=== PATIENT | female | born 1955 | race Caucasian/White ===

== ENCOUNTER 2019-07-10 08:00 | Day surgery (SDC) | payer MEDICAID, SELFPAY | END 2019-07-11 13:26 | disposition home or self-care (01) | PROVIDERS: Family Provider Registered Nurse; PCP Registered Nurse; Visit Provider Orthopaedic Surgery | DX: M17.11 Unilateral primary osteoarthritis, right knee (principal); Z79.52 Long term (current) use of systemic steroids; Z87.891 Personal history of nicotine dependence; J45.909 Unspecified asthma, uncomplicated; I10 Essential (primary) hypertension; K21.9 Gastro-esophageal reflux disease without esophagitis | CPT/HCPCS: 27447; 12345; 73560; 96374; 96375; 97110; 97116; 97161; 97166; 97530; C1776; G0378; J0131; J0171; J0690; J1580; J1885; J2001; J2250; J2270; J2405; J2704; J2710; J2795; J3010; J3490; J7030 ==

== ENCOUNTER 2019-07-10 09:20 | Inpatient (IN) | payer MEDICAID, SELFPAY ==
[2019-06-27 10:08] VITALS: BMI 39.1
--- NOTE | 2019-06-27 10:29 | ANES.PREANE2 ---
Pre-Anesthetic Assessment Pre-Anesthetic Assessment: Height/Weight: Height 1.65 m Weight 106.594 kg Preop Diagnosis: Right knee end stage degenerative joint disease Proposed Procedure: Operation Date: 07/10/19 07:00 Proposed Procedures p Total Knee Arthroplasty 28037 M17.11(Right) - Ascencion Johnson MD Social: Packs per day: 1/2 Pack years: 4 Comment: quit 30 Exam: Pre-Anes Outpt Exam: alert, oriented x 3, clear to auscultation bilaterally and regular rate & rhythm Airway: Submandibular: WNL Cervical ROM: Other MP: 2 Dentition: False Pulmonary: Pulmonary: Asthma CV/HEM: CV/HEM: HTN Comments: rx'd 10y stress test '10 negative GI: GI: GERD Comments: controlled with omeprazole Anesthetic Plan: ASA status: 2 Anesthesia: General and Regional (specify below) PFSH Anesthesia PFSH: Family History (Updated 06/27/19 @ 10:02 by Gabriella Ortiz) Other Diabetes Social History Smoking and tobacco status: never smoked Female Reproductive History: Date of last menstrual period: 06/18/88 Data Anesthesia Cardiac Studies: No Data to Display
[2019-07-10] VITALS (23 sets, daily range): BP systolic 120–168; BP diastolic 58–88; PULSE 43–60; RESP 12–20; TEMP 36.4–37; O2SAT 86–100
--- NOTE | 2019-07-10 06:26 | P.ANESUD_ITS ---
Pre-Anesthetic Update Pre-Anesthetic Assessment: Date of Surgery/Procedure: 07/10/19 Preop Oly gnosis: Osteoarthritis right knee Proposed Procedure: Operation Date: 07/10/19 07:00 Proposed Procedures p Total Knee Arthroplasty 84633 M17.11(Right) - Ascencion Johnson MD Last Intake: Intake Last Liquid Date 07/09/19 Last Solid Date 07/09/19 Vitals: Temperature 98 F 07/10/19 06:20 Temperature Source Temporal Artery S can 07/10/19 06:20 Pulse Rate 60 07/10/19 06:20 Pulse Rhythm 07/10/19 06:11 Pulse Strength 3+ Normal 07/10/19 06:11 Respiratory Rate 18 07/10/19 06:20 Blood Pressure 133/78 07/10/19 06:20 Blood Pressure Bonnie n 96 07/10/19 06:20 Pulse Oximetry 96 07/10/19 06:20 Oxygen Delivery Me thod 07/10/19 06:20 Cardiac Studies: No Data to Display
[2019-07-10] MEDS: sodium chloride 0.9% 1,000 ML 30 ML IV (06:30)
[2019-07-10] MEDS: midazolam 1 mg/mL INJ 5 ML 5 MG IVP (06:53)
[2019-07-10] MEDS: fentaNYL 50 mcg/mL INJ 2mL 100 MCG IVP (06:54)
--- NOTE | 2019-07-10 07:02 | W.PM.OPSUD ---
Surgery/Procedure H&P Update DATE OF PROCEDURE: July 10, 2019 DATE H&P PERFORMED: 07/04/19 H&P UPDATE INFORMATION: I have reviewed H&P completed within last 30 days and No changes to prior documentation PREOP DIAGNOSIS: Osteoarthritis right knee PRIMARY INDICATION FOR PROCEDURE: Pain right knee due to osteoarthritis. Failed conservative care PLANNED PROCEDURE: Operation Date: 07/10/19 07:00 Proposed Procedures p Total Knee Arthroplasty 03589 M17.11(Right) - Ascencion Johnson MD
[2019-07-10] MEDS: tranexamic acid 1,000 mg/10mL SDV 1000 MG IRRIGATION (08:23)
[2019-07-10] MEDS: ketorolac 30 mg/mL INJ IM (08:27)
[2019-07-10] MEDS: EPINEPHrine 1 mg/mL INJ XX (08:27)
--- NOTE | 2019-07-10 09:08 | PM.OP ---
Operative Report Date of procedure: July 10, 2019 Pre-op Diagnosis: Osteoarthritis right knee Post-op diagnosis: same Post-op Findings: Same Procedure Done: Right total knee arthroplasty Pathology: none sent Surgeon: Ascencion Johnson Anesthesia: General and Nerve Block (Interscalene) Estimated blood loss (mL): 200 Tourniquet time (min): 50 Complications: None Findings: The patient had tricompartmental degenerative joint disease with exposed subchondral bone throughout. Her preoperative motion was 30 to 70 degrees. Condition: stable Disposition: PACU Procedure: The patient was taken to the operating room. Patient was given 1 g of tranexamic acid . The above anesthesia provided by the anesthesia service. A timeout was performed. The patient was prepped and draped in the usual fashion with the lower extremity exposed. A anterior incision was made, midline, from a point proximal to the patella to the distal tibial tubercle. Dissection was accomplished through the subcutaneous fat to the extensor mechanism. The knee was entered through a medial parapatellar approach the patella could be everted laterally and the knee flexed. The patellar fat pad was resected to provide better visibility. Retractors were placed medially and laterally adjacent to the tibial plateau. The femoral canal was drilled in line with the longitudinal axis of the femur. Intramedullary femoral guide for used to make a distal femoral cut in 5 degrees of valgus, resecting 8 mm from the more prominent condyle. Next the extra medullary tibial guide was placed in alignment with the longitudinal axis of the tibia. The cutting guides were set to remove just over 9 mm from the high tibial plateau. The proximal tibia was then cut. The femoral measuring guide was then placed over the distal femur. Rotation was verified checking the relationship of the guide to the condyle and the trochlear groove. The femur was measured and cut for the desired femoral component. The desired tibial baseplate was then chosen. A trial reduction with the femur tibial baseplate and polyethylene was done, assuring that the knee was stable throughout full motion. Ligament balancing release of the deep medial collateral ligament and removal of medial osteophyte.The tibia was prepared for the tibial baseplate. Patellar thickness was then measured. The patella was cut removing articular cartilage and prepared for appropriate size patellar button. All surfaces were cleaned with pulsatile lavage. The femur tibia and patella were then press-fit into place. The posterior capsule and collateral ligaments were then injected with a solution of 100 mL of 0.2% ropivacaine, 1 mL of a 1:1000 epinephrine solution, and 30 mg of Toradol. Final polyethylene component was then snapped into place into the tibia. 2 grams of tranexamic acid were applied to the wound. The tourniquet was deflated. The tranxanemic acid was left contact with the knee for 5 minutes before the knee was irrigated with saline. The extensor retinaculum was closed with 1 Ethibond. The subcutaneous tissues were closed with 2-0 Vicryl and the skin was closed with skin farzana. A compressive dressing was applied. The patient was taken to recovery room in stable condition. NeoDiagnostix total knee arthroplasty components were used includin) Size 4 triathalon cruciate retaining femoral component 2) Size 4 Tritanium tibial component 3) 32 mm /10 mm thickness Tritanium asymetric patella 4) Size 4/9 mm thickness CS tibial bearing insert
[2019-07-10] MEDS: fentaNYL 50 mcg/mL INJ 2mL IVP ×2 (09:22→09:27)
--- NOTE | 2019-07-10 09:25 | ANES.PROC ---
Anesthesia Procedures Procedure/Date: 07/10/19 Right adductor canal block Procedure Narrative: R&B's of right adductor canal block for postop pain relief following right TKA. Verbal and written consent obtained. Versed 2+1+.5mg, Fentanyl 50ug, US utilized to identify right adductor canal space, CHRIS. 40 cc of Ropvicaine 0.5% + Lido 2% with epi in 3:1 mixture in 5cc incremental doses. Nerve Block ^: Nerve Block 1: Main Anesthesia: general anesthesia Time Out Performed: Yes Consent: requested by attending/covering physician, from patient, risks and benefits reviewed and patient agrees to proceed Nerve block location: adductor canal Anesthesia monitors applied: pulse oximetry and oxygen Nerve block position: supine Anesthetic Used: lidocaine 2%, ropivicaine 0.5% and with epi Amount of anesthesia used (mL): 40 Ultrasound used to: visualize and ID femerol nerve Nerve Stimulator Used?: No Interscalene/Femoral BLK: 2 stimuplex 22 g needle used for position and inplane approach Injection: neg aspiration of heme and paresthesia +/- Patient Tolerated Procedure: well and no complications Complications: none
--- NOTE | 2019-07-10 09:27 | SUR.PHASEI ---
0927 PT HAS SENSATION/MOVEMENT TO R. FOOT, PEDAL PULSE PALPATED, CAP REFILL <3 SEC, FIRST ICE APPLIED
--- NOTE | 2019-07-10 09:28 | XRR_ITS ---
PROCEDURE INFORMATION: Exam: XR Right Knee Exam date and time: 07/10/2019 9:37 AM Age: 63 years old Clinical indication: Condition or disease; Joint replacement status; Knee; Other complication; Right; Prior surgery; Surgery date: Post-operative (0-2 days); Additional info: Right tka TECHNIQUE: Imaging protocol: XR Right knee. Views: 1 or 2 views. COMPARISON: CR Knee 3 views, RIGHT* [id number] 09/28/2018 5:11 PM FINDINGS: Bones/joints: Patient is status post knee arthroplasty with near anatomical alignment of the prosthesis. No paralleling lucencies about the femoral or tibial component to suggest loosening. No acute fracture or dislocation Soft tissues: Operative changes in the soft tissues about the knee Other findings: Spacer. XR/XR knee RT 1-2V 02427 IMPRESSION: 1. Status post total knee arthroplasty. 2. No paralleling lucencies about the femoral or tibial component to suggest loosening.
[2019-07-10] MEDS: CELEcoxib 200 mg Capsule PO ×2 (10:19→22:33)
[2019-07-10] MEDS: sodium chloride 0.9% 1,000 ML 100 ML IV ×2 (10:20→18:33)
[2019-07-10] MEDS: ondansetron 2 mg/ML SDV 2 mL 4 MG IVP (10:26)
--- NOTE | 2019-07-10 11:01 | PC.NURSE ---
I reported the low 02 level to the nurse
[2019-07-10] MEDS: morphine 4 mg/mL SDV 1 mL 2 MG IVP (14:17)
[2019-07-10] MEDS: chlorhexidine gluconate 0.12% Btl 473 mL 30 ML MUCOUS MEM ×2 (14:20→22:33)
[2019-07-10] MEDS: calcium carbonate 500 mg Chew Tablet 1000 MG PO (17:07)
[2019-07-10] MEDS: iron polysaccharide complex 150 mg Capsule PO (17:07)
[2019-07-10] MEDS: sennosides-docusate Tablet 2 TAB PO (17:07)
[2019-07-10] MEDS: mupirocin oint 22 gm 1 APPLIC NASAL (17:07)
[2019-07-10] MEDS: montelukast sodium 10 mg Tablet PO (22:33)
[2019-07-10] MEDS: oxyCODONE 5 mg IR Tab/Cap PO (22:37)
[2019-07-11] VITALS (13 sets, daily range): BP systolic 120–155; BP diastolic 61–76; PULSE 59–77; RESP 17–20; TEMP 36.8–37.2; O2SAT 91–95
[2019-07-11] MEDS: sodium chloride 0.9% 1,000 ML 100 ML IV (05:33)
[2019-07-11] MEDS: oxyCODONE 5 mg IR Tab/Cap PO ×4 (07:39→21:02)
[2019-07-11] MEDS: iron polysaccharide complex 150 mg Capsule PO ×2 (07:39→17:22)
[2019-07-11] MEDS: bumetanide 1 mg Tablet 2 MG PO (09:12)
[2019-07-11] MEDS: calcium carbonate 500 mg Chew Tablet 1000 MG PO ×2 (09:12→17:22)
[2019-07-11] MEDS: CELEcoxib 200 mg Capsule PO ×2 (09:12→21:02)
[2019-07-11] MEDS: cholecalciferol (vitamin D3) 1,000 unit Tablet 1000 UNIT PO (09:12)
[2019-07-11] MEDS: pantoprazole DR 40 mg Tablet PO (09:13)
[2019-07-11] MEDS: metoprolol tartrate 25 mg Tablet PO ×2 (09:13→17:22)
[2019-07-11] MEDS: multivitamin therapeutic Tablet 1 TAB PO (09:13)
[2019-07-11] MEDS: sennosides-docusate Tablet 2 TAB PO ×2 (09:13→17:22)
[2019-07-11] MEDS: aspirin 325 mg EC Tablet PO (09:13)
[2019-07-11] MEDS: chlorhexidine gluconate 0.12% Btl 473 mL 30 ML MUCOUS MEM ×4 (09:16→21:04)
[2019-07-11] MEDS: mupirocin oint 22 gm 1 APPLIC NASAL (09:22)
--- NOTE | 2019-07-11 09:28 | PC.CHAP ---
Pastoral Care Encounter/Spiritual Assessment Type of Contact [] Declined building guard deputy sheriff visit [] Patient/Family/Request visit [] Outpatient visit [] Follow-up visit [] Physician referral [] Code/Alert [x] Routine visit [] Staff referral [] Actively dying [] Patient sleeping [] Family support [] [] Out of room [] Palliative care [] [] Receiving care in room [] Pre-surgical visit [] Trauma [] Long length of stay [] ICU visit [] Other: Relational/Emotional Strength [] Patient feels connected with others/family/visitors/staff [] Distress [] Loneliness/isolation [] Abandonment Spirituality of Patient [x] Person of Elissa [x] Attends Mosque of their Elissa [x] Believes in Prayer [] Reads Bible or Zoroastrian materials [] There are Spiritual issues to be addressed Automatic Bow Maker Machine Tender Interventions [x] Prayer [x] Active listening [x] Non-anxious presence [x] Spiritual/emotional support [] Crisis/trauma care [] Spiritual counseling [] Bereavement support [] Provided bereavement packet [] Provided Bible/devotional materials [] Provided toy/stuffed animal, coloring book to patient or family member [] Provided Communion [] Anointing/[place] [] Salvation [x] Completed spiritual assessment [] Other: Impact on Illness or Injury [] Angry [] Fearful [] Anxious [] Often cries [] Exhaustion [] Unable to work [] Unable to attend yazidism [] Unable to walk/stand [] Unable to read [] Unable to drive [] Unable to eat/drink [] Unable to sleep [] Unable to be with family [] Patient intubated [] Other: Summary 2 visitors Time spent with patient 10 min
--- NOTE | 2019-07-11 11:46 | ANE.PACU2 ---
 Inpatient post-anesthesia follow up: Airway intact: Yes Vital signs: Temperature 98.4 F Pulse Rate 59 Respiratory Rate 18 Blood Pressure 139/71 Pulse Oximetry 95 Oxygen Delivery Me thod Room Air Oxygen Flow Rate 3 Fraction of Inspir ed Oxygen Hydration adequate: Yes Nausea and vomiting: No Pain level: 3 Mental status: Baseline
--- NOTE | 2019-07-11 13:24 | P.PN_ITS ---
Subjective Subjective: Interval history: Patient's pain is better today. Good p.o. intake and passing urine. Up with therapy for short distances. Vitals/I&O/Wt Last Vital Signs Temp 98.4 F 07/11/19 10:33 Pulse 59 L 07/11/19 10:33 Resp 18 07/11/19 11:31 BP 139/71 07/11/19 10:33 Pulse Ox 95 07/11/19 10:33 07/10/19 07/11/19 07/11/19 22:59 06:59 14:59 Intake Total 1071.667 / 2931.667 1350 / 4281.667 720 / 720 Output Total 0 / 300 350 / 650 300 / 300 Balance 1071.667 / 2631.667 1000 / 3631.667 420 / 420 Weight last 48 hrs Weight 235 lb Weight 258 lb 6.4 oz Physical Exam Narrative: EXAM NARRATIVE: Right knee dressing clean and dry. No distal right neurovascular deficit Urinary Catheter Management^: Jones: Cath Placed During This Visit: yes Urethral Indwelling: No Urinary Catheter Date of Insertion: 07/10/19 Urinary Catheter Time of Insertion: 07:15 A&P Assessment and plan (1) Osteoarthritis of right knee: Status: Acute Code(s): M17.11 - Unilateral primary osteoarthritis, right knee (2) Status post right knee replacement: Continue to mobilize with therapy. Patient with slow her progress. She has significant motion loss preoperatively and I anticipate more difficulty regaining motion. I would like to see her 1 more good day of aggressive therapy anticipate discharge tomorrow. Status: Acute Code(s): Z96.651 - Presence of right artificial knee joint Attestations Medical Necessity Statement*: Patient requires 1 additional night hospitalization to improve mobility prior to discharge. Coding Level of Care Code Acute As[employer] for Faye Edwards Diagnoses Osteoarthritis of right knee M17.11 Status post right knee replacement Z96.651
[2019-07-11] MEDS: montelukast sodium 10 mg Tablet PO (21:03)
[2019-07-12] VITALS: BP 139/58; PULSE 64; RESP 17; TEMP 36.9; O2SAT 92
[2019-07-12 04:00] VITALS: BP 148/74; PULSE 69; RESP 18; TEMP 37; O2SAT 92
[2019-07-12 08:00] VITALS: BP 148/77; PULSE 65; RESP 20; TEMP 37.4; O2SAT 97
[2019-07-12] MEDS: bumetanide 1 mg Tablet 2 MG PO (08:36)
[2019-07-12] MEDS: calcium carbonate 500 mg Chew Tablet 1000 MG PO (08:36)
[2019-07-12] MEDS: metoprolol tartrate 25 mg Tablet PO (08:37)
[2019-07-12] MEDS: aspirin 325 mg EC Tablet PO (08:37)
[2019-07-12] MEDS: multivitamin therapeutic Tablet 1 TAB PO (08:37)
[2019-07-12] MEDS: cholecalciferol (vitamin D3) 1,000 unit Tablet 1000 UNIT PO (08:37)
[2019-07-12] MEDS: iron polysaccharide complex 150 mg Capsule PO (08:38)
[2019-07-12] MEDS: oxyCODONE 5 mg IR Tab/Cap PO ×2 (08:38→12:59)
[2019-07-12] MEDS: sennosides-docusate Tablet 2 TAB PO (08:38)
[2019-07-12] MEDS: pantoprazole DR 40 mg Tablet PO (08:38)
[2019-07-12] MEDS: chlorhexidine gluconate 0.12% Btl 473 mL 30 ML MUCOUS MEM ×2 (08:42→13:00)
[2019-07-12] MEDS: CELEcoxib 200 mg Capsule PO (10:41)
[2019-07-12 10:46] VITALS: BP 128/76; PULSE 66; RESP 18; TEMP 36.9; O2SAT 97
--- NOTE | 2019-07-12 13:45 | PM.DCS ---
Discharge Providers Date of Admission: 07/11/19 13:26 Date of Discharge: July 12, 2019 Attending Provider at Admission: Ascencion Johnson MD Attending Provider at Discharge: Ascencion Johnson MD Primary Care Provider: Helena Godfrey Diagnoses at Discharge Discharge Diagnosis (1) Osteoarthritis of right knee: Status: Acute (2) Status post right knee replacement: Status: Acute Reason for Visit Reason for Visit: Reason For Visit: Right Total Knee Arthroplasty Hospital Course Hospital Course: The patient underwent elective right total knee arthroplasty on 07/10/2019 and did exceptionally well. She had slow her progress due to her size but by 07/12/2019 she was fully ambulatory and ready for discharge. She remained hemodynamically stable throughout her hospitalization. She was begun on aspirin and sequential compression dressings for DVT prophylaxis. She was thought stable for discharge by 07/12/2019 Physical Exam Narrative: EXAM NARRATIVE: Her right knee on 07/12/2019 revealed minimal swelling. Her incision was clean and free of drainage. She had no distal right neurovascular deficits. Urinary Catheter Management^: Jones: Cath Placed During This Visit: yes Urethral Indwelling: No Urinary Catheter Date of Insertion: 07/10/19 Urinary Catheter Time of Insertion: 07:15 Discharge Data Data Completed and Pending: Completed Studies During Hospitalization Category Date Time Status XR knee RT 1-2V 7 3560 Routine Exams 07/10/19 09:28 Completed Pending at discharge Category Date Time Status Hemoglobin AM LAB S Lab 07/13/19 04:00 Ordered Labs from last 24 hours 07/12/19 04:57 Hgb 11.0 L Vitals: Last Vital Signs Temp 98.4 F 07/12/19 10:46 Pulse 66 07/12/19 10:46 Resp 18 07/12/19 10:46 BP 128/76 07/12/19 10:46 Pulse Ox 97 07/12/19 10:46 Discharge Plan Discharge Patient Disposition: Home Health Service Condition: Stable Prescriptions: New celecoxib 200 mg Capsule 200 mg PO Q12H Qty: 30 RF: 0 aspirin 325 mg Tablet,Delayed Release (Dr/Ec) 325 mg PO DAILY Qty: 30 RF: 0 oxycodone 5 mg Tablet 5 mg PO Q4H PRN (Reason: Moderate Pain) Qty: 30 RF: 0 Continued metoprolol tartrate 25 mg tablet 25 mg PO BID RF: 0 potassium chloride 10 mEq capsule, extended release 10 meq PO DAILY RF: 0 omeprazole 20 mg capsule,delayed release(DR/EC) 20 mg PO DAILY RF: 0 montelukast 10 mg tablet 10 mg PO ONCE RF: 0 albuterol 90 mcg/actuation aerosol 90 mcg INHALATION Q4-5H PRN (Reason: SOB) RF: 0 mupirocin 2 % ointment 1 applic TOPICAL BID Qty: 30 RF: 0 bumetanide 2 mg Tablet 2 mg PO DAILY RF: 0 Discharge Orders: Discharge Order (Routine); Ordered 07/12/19 Ordered By: Ascencion Johnson Other Ambulatory Orders: DME: Walker (Order) Location: None Selected Ordered By: Ascencion Johnson Physical Therapy Eval and Treat Outpatient (Order) Timeframe: [id number] Facility: [facility] - Location: Physical Therapy Ordered By: Ascencion Johnson Referrals: Ascencion Johnson MD [Physician] - 07/25/19 11:30 am Discharge Diet: Advance as tolerated Discharge Activity: As per PT/OT instructions Patient Instructions: Oxycodone/Acetaminophen (By mouth), Aspirin (By mouth), Celecoxib (By mouth), Total Knee Replacement (DC) Activity Restrictions/Additional Instructions: May shower once incisions completely free of drainage. Replaced dressings as needed for drainage.. Take Celebrex twice a day for the next 15 days, discontinue other anti-inflammatories Take oxycodone for breakthrough pain. Exercises per physical therapy. Ice and elevate knees as needed for pain and swelling.. Discharge Attestations Time Spent in Discharge Care*: other Quality Metrics Clinical Quality Measures During this hospital stay, did patient experience: None Coding Level of Care Code Acute Category Specialist for arianna Fwcassidy Diagnoses Osteoarthritis of right knee M17.11 Status post right knee replacement Z96.651
[2019-07-12 13:59] VITALS: BP 128/76; PULSE 66; RESP 18; TEMP 36.9; O2SAT 97
== END 2019-07-12 14:00 | disposition home or self-care (01) | DRG 470 ==
LOC: MEDSURG 09:20
PROVIDERS: Admitting Provider Orthopaedic Surgery; Family Provider Registered Nurse; PCP Registered Nurse; Visit Provider Orthopaedic Surgery
PROC: 0SRC0JA Replacement of Right Knee Joint with Synthetic Substitute, Uncemented, Open Approach (ICD-10-PCS; CPT 27447; principal; 2019-07-10 07:00)
DX: M17.11 Unilateral primary osteoarthritis, right knee (principal); Z79.52 Long term (current) use of systemic steroids
CPT/HCPCS: 12345; 36415; 73560; 85018; 96374; 96375; 97110; 97116; 97161; 97166; 97530; C1776; G0378; J0131; J0171; J0690; J1100; J1580; J1885; J2001; J2250; J2270; J2405; J2704; J2710; J2795; J3010; J3490; J7030

== ENCOUNTER 2019-07-14 08:31 | Outpatient (RCR) | payer SELFPAY | END 2019-07-15 23:59 | disposition home or self-care (01) | LOC: SPT 08:31 | PROVIDERS: Family Provider Registered Nurse; PCP Registered Nurse; Referring Provider Orthopaedic Surgery; Visit Provider Orthopaedic Surgery | DX: Z47.1 Aftercare following joint replacement surgery (principal); Z96.651 Presence of right artificial knee joint | CPT/HCPCS: 97161 ==

== ENCOUNTER 2019-07-16 06:00 | Outpatient (RCR) | payer SELFPAY | END 2019-08-15 23:59 | disposition home or self-care (01) | LOC: SPT 06:00 | PROVIDERS: Family Provider Registered Nurse; PCP Registered Nurse; Referring Provider Orthopaedic Surgery; Visit Provider Orthopaedic Surgery | DX: Z47.1 Aftercare following joint replacement surgery (principal); Z96.651 Presence of right artificial knee joint | CPT/HCPCS: 97110 ==

== ENCOUNTER 2019-08-16 06:00 | Outpatient (RCR) | payer MEDICAID, SELFPAY | END 2019-09-14 23:59 | disposition home or self-care (01) | LOC: SPT 06:00 | PROVIDERS: Family Provider Registered Nurse; PCP Registered Nurse; Referring Provider Orthopaedic Surgery; Visit Provider Orthopaedic Surgery | DX: Z47.1 Aftercare following joint replacement surgery (principal); Z96.651 Presence of right artificial knee joint | CPT/HCPCS: 97110 ==

== ENCOUNTER 2019-09-15 06:00 | Outpatient (RCR) | payer SELFPAY | END 2019-10-15 23:59 | disposition home or self-care (01) | LOC: SPT 06:00 | PROVIDERS: PCP Registered Nurse; Referring Provider Orthopaedic Surgery; Visit Provider Orthopaedic Surgery | DX: Z47.1 Aftercare following joint replacement surgery (principal); Z96.651 Presence of right artificial knee joint; M25.661 Stiffness of right knee, not elsewhere classified | CPT/HCPCS: 97110 ==

== ENCOUNTER 2020-03-26 14:19 | Outpatient (CLI) | payer MEDICAID, SELFPAY ==
--- NOTE | 2020-03-26 14:25 | MM_ITS ---
WS: [id number] BILATERAL DIGITAL SCREENING MAMMOGRAPHY WITH CAD CLINICAL INFORMATION: SCREENING HISTORY: Screening mammogram. No current complaints. COMPARISON: TECHNIQUE: Bilateral CC and MLO views. FINDINGS: Scattered fibroglandular densities bilaterally. No suspicious focal mass, asymmetry, calcifications, or architectural distortion. No evidence of malignancy. A few intramammary lymph nodes. Punctate calc ifications. MM/[id number] IMPRESSION: BI-RADS: 2-Benign FOLLOW UP: 1 Year Follow-up Recommend return to annual screening mammography.
== END 2020-03-26 14:20 | disposition home or self-care (01) ==
LOC: RADSHAW 14:23
PROVIDERS: PCP Registered Nurse; Visit Provider Registered Nurse
DX: Z12.31 Encounter for screening mammogram for malignant neoplasm of breast (principal)
CPT/HCPCS: 77067

== ENCOUNTER 2022-01-09 11:01 | Outpatient (CLI) | payer MEDICARE, MEDICAID, SELFPAY ==
--- NOTE | 2022-01-09 11:10 | MM_ITS ---
WS: [id number] Bilateral screening 3D tomosynthesis digital mammogram, 01/09/2022 Clinical Data: SCREENING Comparison: 03/26/2020, 10/21/2017, 11/05/2005. Findings: The breast parenchymal pattern shows fibroglandular tissue. No spiculated masses or clustered calcifi cations are seen. There are no secondary signs of carcinoma. There is a mole marker on the right [address] MM/[place] [id number] Impression: 1. Negative bilateral mammogram unchanged. 2. Recommend annual screening mammograms. BIRADS: 1-Negative FOLLOW UP: 1 Year Follow-up The CAD weight checker was used.
== END 2022-01-09 11:02 | disposition home or self-care (01) ==
LOC: RAD 11:05
PROVIDERS: PCP Registered Nurse; Visit Provider Registered Nurse
DX: Z12.31 Encounter for screening mammogram for malignant neoplasm of breast (principal)
CPT/HCPCS: 77063; 77067

== ENCOUNTER 2022-03-30 13:09 | Observation (INO) | payer MEDICARE, MEDICAID, SELFPAY ==
[2022-03-30] VITALS (11 sets, daily range): BP systolic 104–133; BP diastolic 53–100; PULSE 74–111; RESP 18–22; TEMP 36.4–37.1; O2SAT 92–95; BMI 38.2
--- NOTE | 2022-03-30 13:49 | XR_ITS ---
WS: [id number] Exam: XR chest 1V portable [id number] Date/Time of Exam: 03/30/2022 1:49 PM Reason For Exam: sob Comparison 05/25/2003. The lungs are clear and fully expanded. Normal cardiomediastinal silhouette for technique. No pleural effusions. Regional bony elements are intact. XR/XR chest 1V portable [id number] IMPRESSION: 1. No acute cardiopulmonary finding.
--- NOTE | 2022-03-30 13:49 | ECG_ITS ---
[facility] Test Date: 2022-03-30 Pat Name: Rehana Go Department: Room: Gender: Female Six Pack Packer: : [id number] Requested By: Reynaldo Rosales Order Number: [id number] Debbie MD: Otilio Mccullough Measurements Intervals [place] Rate: 98 P: 0 NC: 0 QRS: -3 QRSD: 153 T: 126 QT: 396 QTc: 507 Interpretive Statements SINUS RHYTHM WITH PAROXYSMAL ATRIAL FIBRILLATION LEFT BUNDLE BRANCH BLOCK [120+ ms QRS DURATION, 80+ ms Q/S IN V1/V2, 85+ ms R IN I/aVL/V5/V6] No previous ECG available for comparison Electronically Signed On 03-31-2022 18:14:59 OPERATIONS INTERN by Otilio Mccullough [email or web address]
--- NOTE | 2022-03-30 14:00 | W.ED.SOB ---
HPI - SOB/Dyspnea General: Chief Complaint: Shortness of Breath/Dyspnea Stated Complaint: SOB Time Seen by Provider: 03/30/22 13:59 History of Present Illness: HPI Narrative: Ms. Go is a 66-year-old lady with significant past medical history of asthma presenting to the emergency department due to shortness of breath. Noticed worsening of symptoms approximately 2 days ago which has gradually worsened. Endorses worse symptoms while lying flat and with exertion with marked decrease in exertional tolerance. Some cough. 1 day of perhaps chills. Intensity symptoms moderate but becomes severe with exertion. Endorses similar timeframe for left lateral neck swelling associated with what she thinks may have been a spider bite. Some redness and discomfort though overall swelling is improved. No other specific changes in health, exacerbating, or alleviating factors identified. Onset (ago): day(s) Timing: constant and progressively worsening Severity: moderate Exacerbating factors: lying flat and exertion Relieving factors: nothing Known history of: asthma Associated symptoms: Reports no associated symptoms Review of Systems General: Reports: 10 or more systems reviewed and unremarkable except in HPI and below PFSH ED PFSH: Medical History Asthma Hypertension Ovarian cyst Surgical History H/O section H/O: hysterectomy Hx of cholecystectomy Status post right knee replacement Family History Other Diabetes Social History Smoking and tobacco status: never smoked Female Reproductive History: Date of last menstrual period: 06/18/88 Physical Exam Const: COMMON NORMALS: alert GENERAL APPEARANCE: cooperative and well developed HENMT: COMMON NORMALS: normocephalic and atraumatic HEAD & SCALP: normocephalic and atraumatic Eye: COMMON NORMALS: conjunctivae normal CONJUNCTIVA: Yes conjunctivae normal SCLERA: sclerae normal Neck/C-Spine: COMMON NORMALS: supple GENERAL: Yes trachea midline Resp: EFFORT & INSPECTION: Yes able to speak in complete sentences and Yes tachypneic AUSCULTATION: diminished lung sounds Cardio: COMMON NORMALS: regular rhythm RATE: tachycardic RHYTHM: regular rhythm GI: COMMON NORMALS: Soft to palpation PALPATION: Yes Soft to palpation and No Tenderness to palpation present (GI) Extremity: GENERAL: Yes normal exam except as noted and No edema Neuro: COMMON NORMALS: moves all extremities SENSORIUM/ORIENTATION: Yes alert and No Orientation impaired Psych: COMMON NORMALS: mental status grossly normal and Normal thought process present THOUGHT PROCESS: Normal thought process present Skin: NARRATIVE SKIN EXAM: Left lateral neck with area of swelling and greater area of erythema, appears to have central insect bite Course Vital Signs: Vital signs: Vital Signs Temperature 98.6 F 03/31/22 12:17 Pulse Rate 74 03/31/22 12:17 Respiratory Rate 14 03/31/22 12:17 Blood Pressure 154/78 03/31/22 12:17 Pulse Oximetry 98 03/31/22 12:17 Oxygen Delivery Me thod 03/31/22 08:18 MDM - SOB/Dyspnea Medical Decision Making 66-year-old lady presenting with respiratory symptoms with some concerning features for heart failure. Exam as above. Twelve-lead EKG shows abnormal rhythm likely sinus rhythm with first-degree AV block and left bundle branch block. No STEMI. Unremarkable hematologic panel. Metabolic panel with mild hypokalemia and elevated creatinine. 2-hour delta troponin is negative. Negative COVID. Chest x-ray with no lobar consolidation or pneumothorax. Exact etiology of patient symptoms is unclear though there are certainly characteristics concerning for a cardiac etiology. Patient is not low risk by heart score. During ED course patient given RT treatment, potassium replenishment, aspirin. The results of ED evaluation were discussed with the patient including plan for admission due to requirement for level of care not available if discharged to prevent significant worsening/deterioration. Patient agreeable with plan. Discussed with hospitalist service who was agreeable to admit patient. Medical Records I reviewed the patient's medical records. Lab Data I reviewed the patient's lab results. 03/31/22 04:21 03/31/22 04:21 Labs/Radiology: Radiology Impressions Chest X-Ray 03/30/22 13:49 IMPRESSION: 1. No acute cardiopulmonary finding. Head/Neck Ultrasound 03/30/22 19:17 IMPRESSION: Dense area soft tissue thickening corresponds to the LEFT neck mass. Not an abscess at this time. Probably an inflammatory process from the recent spider bite. If this area does not improve over time consider follow-up imaging. CT with contrast may provide additional information if necessary. Laboratory Results WBC 8.8 10^3/uL (4.0-10.0) 03/30/22 14:47 RBC 5.14 10^6/uL (4.1-5.3) 03/30/22 14:47 Hgb 14.6 g/dL (11.5-15.3) 03/30/22 14:47 Hct 44.2 % (37.0-47.0) 03/30/22 14:47 MCV 86.0 fl (81-99) 03/30/22 14:47 MCH 28.4 pg (28.0-34.0) 03/30/22 14:47 MCHC 33.0 g/dL (30.0-36.0) 03/30/22 14:47 RDW 13.1 % (12.1-15.1) 03/30/22 14:47 Plt Count 225 10^3/cmm (130-400) 03/30/22 14:47 MPV 9.4 fL (7.4-10.4) 03/30/22 14:47 Neut % (Auto) 57.6 % 03/30/22 14:47 Lymph % (Auto) 21.6 % 03/30/22 14:47 [place] % (Auto) 7.4 % 03/30/22 14:47 Eos % (Auto) 12.4 % 03/30/22 14:47 Baso % (Auto) 0.5 % 03/30/22 14:47 Neut # (Auto) 5.09 10^3/uL (1.8-7.7) 03/30/22 14:47 Lymph # (Auto) 1.9 10^3/uL (0.8-4.8) 03/30/22 14:47 [place] # (Auto) 0.7 10^3/uL (0.2-0.9) 03/30/22 14:47 Eos # (Auto) 1.1 10^3/uL (0.0-0.8) H 03/30/22 14:47 Baso # (Auto) 0.0 10^3/uL (0.0-0.1) 03/30/22 14:47 Nucleated RBC % (auto) 0 % 03/30/22 14:47 Nucleated RBCs # 0.0 /100WBC 03/30/22 14:47 D-Dimer 0.93 ug/mIFEU (0-0.59) H 03/30/22 14:47 Sodium 139 mmol/L (136-145) 03/30/22 14:47 Potassium 3.2 mmol/L (3.5-5.1) L 03/30/22 14:47 Chloride 96 mmol/L (98-107) L 03/30/22 14:47 Carbon Dioxide 29 mmol/L (22-29) 03/30/22 14:47 Anion Gap 17.2 (5-19) 03/30/22 14:47 BUN 21 mg/dL (8-23) 03/30/22 14:47 Creatinine 1.1 mg/dL (0.5-0.9) H 03/30/22 14:47 GFR Calculation 49.7 mL/min (90-130) L 03/30/22 14:47 Glucose 103 mg/dL (65-115) 03/30/22 14:47 Calculated Osmolality 291 mOsm/kg (285-295) 03/30/22 14:47 Calcium 9.8 mg/dL (8.5-10.5) 03/30/22 14:47 Total Bilirubin 0.7 mg/dL (0.15-1.2) 03/30/22 14:47 AST 21 U/L (0-32) 03/30/22 14:47 ALT 16 U/L (0-33) 03/30/22 14:47 Alkaline Phosphatase 226 U/L (35-105) H 03/30/22 14:47 Troponin T Baseline 10 ng/L (0-10) 03/30/22 14:47 Troponin T 120 Minute 9.47 ng/L (0-10) 03/30/22 16:27 Delta Troponin T -0.53 ABS# (0-10) L 03/30/22 16:27 C-Reactive Protein 35.3 mg/L (0.0-4.9) H 03/30/22 14:47 NT-Pro-B Natriuret Pep 739 pg/mL (0-125) H 03/30/22 14:47 Total Protein 8.0 g/dL (6.6-8.7) 03/30/22 14:47 Albumin 4.5 g/dL (3.5-5.2) 03/30/22 14:47 Globulin 3.5 g/dL (1.3-4.6) 03/30/22 14:47 Procalcitonin 0.10 ng/mL (0-0.5) 03/30/22 16:27 Coronavirus 229E (PCR) Not detected (NOT DETECT) 03/30/22 14:50 SARS-CoV-2 (PCR) Not detected (NOT DETECT) 03/30/22 14:50 Discharge Plan Discharge Patient Disposition: Placed in Observation Admit Provider: Rolando Recinos Clinical Impression: Atypical chest pain, Arrhythmia, Shortness of breath, Orthopnea Coding Level of Care Code ED Inspector [employer] for Chg Fwd Exam Comprehensive
[2022-03-30] MEDS: ipratropium-albuterol 3 mL Neb INHALATION (14:20)
[2022-03-30 14:56] LABS: Basophils % 0.5 %; Eosinophils # 1.1 10^3/uL (0.0-0.8); Eosinophils % 12.4 %; Hematocrit 44.2 % (37.0-47.0); Hemoglobin 14.6 g/dL (11.5-15.3); Lymphocytes # 1.9 10^3/uL (0.8-4.8); Lymphocytes % 21.6 %; Mean Corpuscular Hemoglobin 28.4 pg (28.0-34.0); Mean Platelet Volume 9.4 fL (7.4-10.4); Monocytes # 0.7 10^3/uL (0.2-0.9); Monocytes % 7.4 %; Neutrophils # 5.09 10^3/uL (1.8-7.7); Neutrophils % 57.6 %; Nucleated Red Blood Cells % 0 %; Platelet Count 225 10^3/cmm (130-400); Red Blood Count 5.14 10^6/uL (4.1-5.3); Red Cell Distribution Width 13.1 % (12.1-15.1); White Blood Count 8.8 10^3/uL (4.0-10.0)
[2022-03-30 15:21] LABS: Troponin(5th) Baseline 10 ng/L (0-10)
[2022-03-30 15:28] LABS: NT Pro B Type Natriuretic Pept 739 pg/mL (0-125); Procalcitonin 0.12 ng/mL (0-0.5)
[2022-03-30 15:39] LABS: Alanine Aminotransferase 16 U/L (0-33); Albumin Level 4.5 g/dL (3.5-5.2); Alkaline Phosphatase 226 U/L (35-105); Anion Gap 17.2 (5-19); Aspartate Amino Transferase 21 U/L (0-32); Blood Urea Nitrogen 21 mg/dL (8-23); C Reactive Protein 35.3 mg/L (0.0-4.9); Calcium 9.8 mg/dL (8.5-10.5); Carbon Dioxide 29 mmol/L (22-29); Chloride 96 mmol/L (98-107); Globulin 3.5 g/dL (1.3-4.6); Glomerular Filtration Rate 49.7 mL/min (90-130); Glucose 103 mg/dL (65-115); Osmolality Calculated 291 mOsm/kg (285-295); Potassium 3.2 mmol/L (3.5-5.1); Sodium 139 mmol/L (136-145); Total Bilirubin 0.7 mg/dL (0.15-1.2)
--- NOTE | 2022-03-30 16:09 | ECG_ITS ---
[facility] Test Date: 2022-03-30 Pat Name: Rehana Go Department: Room: Gender: Female [employer] Machine Operator: : 1955 Requested By: Reynaldo Rosales Order Number: [id number] Debbie MD: Otilio Mccullough Measurements Intervals [place] Rate: 102 P: 0 SC: 0 QRS: 3 QRSD: 158 T: 135 QT: 399 QTc: 520 Interpretive Statements ATRIAL FIBRILLATION WITH RAPID VENTRICULAR RESPONSE LEFT BUNDLE BRANCH BLOCK [120+ ms QRS DURATION, 80+ ms Q/S IN V1/V2, 85+ ms R IN I/aVL/V5/V6] Compared to ECG 03/30/2022 14:22:37 No significant changes Electronically Signed On 03-31-2022 18:11:48 E LEARNING COORDINATOR by Otilio Mccullough [id number]
[2022-03-30 16:48] LABS: Adenovirus Not Detected (NOT DETECT); Chlamydia Pneumoniae Not Detected (NOT DETECT); Coronavirus 229E,HKU1,NL63,OC4 Not Detected (NOT DETECT); Human Metapneumovirus Not Detected (NOT DETECT); Human Rhinovirus/Enterovirus Not Detected (NOT DETECT); Influenza A Not Detected (NOT DETECT); Influenza A H1 Not Detected (NOT DETECT); Influenza A H1-2009 Not Detected (NOT DETECT); Influenza A H3 Not Detected (NOT DETECT); Influenza B Not Detected (NOT DETECT); Mycoplasma Pneumoniae Not Detected (NOT DETECT); Parainfluenza Virus Type 1 Not Detected (NOT DETECT); Parainfluenza Virus Type 2 Not Detected (NOT DETECT); Parainfluenza Virus Type 3 Not Detected (NOT DETECT); Parainfluenza Virus Type 4 Not Detected (NOT DETECT); Respiratory Syncytial Virus A Not Detected (NOT DETECT); Respiratory Syncytial Virus B Not Detected (NOT DETECT); SARS-COV-2 Not Detected (NOT DETECT)
[2022-03-30] MEDS: potassium chloride ER 20 mEq Tablet 40 MEQ PO (17:18)
[2022-03-30 17:26] LABS: Troponin 5 2HR 9.47 ng/L (0-10)
[2022-03-30] MEDS: aspirin 81 mg Chew Tablet 324 MG PO (18:10)
[2022-03-30 18:41] LABS: Troponin 5 2HR Delta -0.53 ABS# (0-10)
--- NOTE | 2022-03-30 19:01 | P.HP_ITS ---
Providers/Chief Complaint Admitting Physician: Rolando Recinos MD Primary Care Provider: Karen Jeffrey DO Chief Complaint: SOB History of Present Illness Rehana Go is a 66 year old female who presented today with chief complaint of shortness of breath. Patient is stating that she was bit by a spider a few days ago and since then she has been struggling to take deep breaths, she thinks it only hurts in the midepigastric region when she tries to take a deep breath however her oxygen saturation never dropped, she has not expressed any chest pain, nausea, vomiting, diarrhea or fever. She has history of asthma. In the ER her diagnostic work-up reveals hypokalemia. She does have wheezing on clinical exam. Hospitalist was requested for management of her symptoms because of wheezing. I have requested ultrasound of neck to rule out abscess I have started on steroids. Troponin unremarkable. EKG did show left bundle branch block. Review of Systems Const: Reports: chills Eyes: Denies: change in vision ENMT: Denies: throat pain Card: Denies: chest pain Resp: Reports: dyspnea GI: Denies: abdominal pain : Denies: flank pain Musc: Denies: neck pain Skin/Breast: Reports: rash, pruritus and erythema Neuro: Denies: headache(s) Psych: Reports: anxiety Endo: Denies: polyuria Gopal/Lymph: Denies: easy bruising All/Imm: Denies: urticaria Medications/Allergies Home Medications Medication Instructions Recorded Confirmed Last Taken Type metoprolol tartrate 25 mg tablet 25 mg PO BID 05/30/19 03/30/22 03/30/22 History montelukast 10 mg tablet 10 mg PO DAILY 05/30/19 03/30/22 03/30/22 History omeprazole 20 mg capsule,delayed 20 mg PO DAILY 05/30/19 03/30/22 03/30/22 History release potassium chloride 10 mEq 10 meq PO DAILY 05/30/19 03/30/22 03/30/22 History capsule,extended release albuterol sulfate 90 mcg/actuation 2 puff inhalation Q6H PRN 03/30/22 03/30/22 Unknown History aerosol inhaler (Ventolin HFA) Shortness Of Breath bumetanide 2 mg tablet 2 mg PO DAILY 03/30/22 03/30/22 03/30/22 History mirabegron 25 mg tablet,extended 25 mg PO DAILY 03/30/22 03/30/22 03/30/22 History release 24 hr (Myrbetriq) Allergies Allergy/AdvReac Type Severity Reaction Status Date / Time No Known Allergies Allergy Verified 11/09/19 10:09 PFSH Acute PFSH: Medical History Asthma Hypertension Ovarian cyst Surgical History H/O section H/O: hysterectomy Hx of cholecystectomy Status post right knee replacement Family History Other Diabetes Social History Smoking and tobacco status: never smoked Female Reproductive History: Date of last menstrual period: 06/18/88 Vitals/I&O/Wt Last Vital Signs Temp 98.0 F 03/30/22 14:01 Pulse 111 H 03/30/22 18:00 Resp 18 03/30/22 14:20 BP 123/53 03/30/22 18:30 Pulse Ox 92 03/30/22 18:30 O2 Del Method 03/30/22 18:00 Weight last 48 hrs Weight 104.326 kg Physical Exam Narrative: Patient is currently sitting comfortably in her bed Saturating well on room air Hemodynamically stable There is erythema left lateral neck area with induration, hard lymph node which is tender Patient is actively wheezing no active respiratory distress No active signs of cyanosis S1, S2 Abdomen soft Lower extremity nonpitting edema Nonfocal neuro exam Awake and alert EOMI, PERRLA Pleasant and cooperative Data : 03/31/22 04:21 03/31/22 04:21 A&P Assessment and plan (1) Shortness of breath: (2) Orthopnea: (3) Spider bite: (4) Cellulitis: (5) Asthma exacerbation, mild: Plan Mild asthma exacerbation Currently wheezing Started on Benadryl and steroids DuoNeb Saturating well on room air Cellulitis nonpurulent Spider bite Started on ceftriaxone Requested ultrasound to rule out abscess she is not septic we will give her Benadryl as well Chronic heart failure without acute exacerbation continue Bumex along potassium supplement Hypokalemia: Repleted Full code Cardiac consistent carb diet DVT prophylaxis Lovenox Attestations Medical Necessity Statement*: Anticipating discharge within 40 hours management of mild asthma exacerbation and cellulitis Time Spent in Patient Care: 30 Coding Level of Care Code Acute Hospital Personnel Director for Merryg Fwd Diagnoses Shortness of breath R06.02 Orthopnea R06.01 Spider bite T63.301A Cellulitis L03.90 Asthma exacerbation, mild J45.901
--- NOTE | 2022-03-30 19:17 | US_ITS ---
WS: [id number] ULTRASOUND SOFT TISSUES LEFT neck. HISTORY: left neck spider bite area only COMPARISON: None available. TECHNIQUE: 2-D and color Doppler imaging is submitted. Ultrasound is directed to the soft tissues along the LEFT neck at the area of the recent spider bite. There is an inflammatory edematous soft tissue mass which is ill-defined measuring 3.1 x 3.9 x 1.4 c m. There is no lucent center or abscess. The soft tissues are thickened and slightly distorted by the probably reactive area of inflammation. US/US soft tissue head neck 61654 IMPRESSION: Dense area soft tissue thickening corresponds to the LEFT neck mass. Not an abs cess at this time. Probably an inflammatory process from the recent spider bite . If this area does not improve over time consider follow-up imaging. CT with c ontrast may provide additional information if necessary.
[2022-03-30] MEDS: diphenhydrAMINE 50 mg/mL SDV 1mL 12.5 MG IVP (19:28)
[2022-03-30 19:35] LABS: D Dimer 0.93 ug/mIFEU (0-0.59)
[2022-03-30 21:31] LABS: Troponin 5 6HR 9.73 ng/L (0-10)
[2022-03-30 21:46] LABS: Troponin 5 6HR Delta -0.27 ng/L (0-12)
[2022-03-31] VITALS (24 sets, daily range): BP systolic 144–161; BP diastolic 66–78; PULSE 58–90; RESP 11–28; TEMP 36.3–37; O2SAT 87–98
[2022-03-31 05:21] LABS: Basophils % 0.5 %; Eosinophils # 0.2 10^3/uL (0.0-0.8); Eosinophils % 2.9 %; Hematocrit 39.9 % (37.0-47.0); Lymphocytes # 0.9 10^3/uL (0.8-4.8); Lymphocytes % 15.1 %; Mean Corpuscular HGB Conc 32.6 g/dL (30.0-36.0); Mean Corpuscular Hemoglobin 28.3 pg (28.0-34.0); Mean Corpuscular Volume 86.7 fl (81-99); Mean Platelet Volume 9.8 fL (7.4-10.4); Monocytes # 0.1 10^3/uL (0.2-0.9); Monocytes % 2.3 %; Neutrophils # 4.87 10^3/uL (1.8-7.7); Neutrophils % 78.2 %; Nucleated Red Blood Cells % 0 %; Platelet Count 204 10^3/cmm (130-400); Red Cell Distribution Width 13.2 % (12.1-15.1); White Blood Count 6.2 10^3/uL (4.0-10.0)
[2022-03-31 05:44] LABS: Anion Gap 13.8 (5-19); Blood Urea Nitrogen 22 mg/dL (8-23); C Reactive Protein 32.4 mg/L (0.0-4.9); Calcium 9.9 mg/dL (8.5-10.5); Carbon Dioxide 28 mmol/L (22-29); Chloride 95 mmol/L (98-107); Glomerular Filtration Rate 62.6 mL/min (90-130); Glucose 137 mg/dL (65-115); Osmolality Calculated 281 mOsm/kg (285-295); Phosphorus 3.3 mg/dL (2.5-4.5); Potassium 3.8 mmol/L (3.5-5.1); Sodium 133 mmol/L (136-145)
[2022-03-31] MEDS: bumetanide 1 mg Tablet 2 MG PO (10:00)
[2022-03-31] MEDS: potassium chloride ER 10 mEq Tablet PO (10:00)
[2022-03-31] MEDS: metoprolol tartrate 25 mg Tablet PO (10:00)
[2022-03-31] MEDS: sennosides-docusate Tablet 1 TAB PO (10:00)
[2022-03-31] MEDS: cefTRIAXone 1,000 MG in sodium chloride 0.9% (plus) 50 ML 100 MG IV (10:01)
--- NOTE | 2022-03-31 10:05 | P.DS_ITS ---
Discharge Providers Date of Admission: 03/30/22 17:45 Date of Discharge: March 31, 2022 Attending Provider at Admission: Rolando Recinos MD Attending Provider at Discharge: Rolando Recinos MD Primary Care Provider: Karen Jeffrey DO Diagnoses at Discharge Discharge Diagnosis (1) Shortness of breath: Status: Acute (2) Orthopnea: Status: Acute (3) Spider bite: Status: Acute (4) Cellulitis: Status: Acute (5) Asthma exacerbation, mild: Status: Acute Reason for Visit Reason for Visit: SOB Hospital Course Hospital Course 66-year-old female who was admitted for management evaluation of mild exacerbation of her asthma, she will experiencing wheezing and shortness of breath she did not experience any chest pain, febrile events. EKG showed left bundle branch block. She remained afebrile hemodynamically stable. She was bit by a spider a week ago ultrasound of neck only showed tender lymphadenopathy, no sign of abscess. She did feel significantly better with Benadryl and steroid. She will be going home on Medrol pack and Benadryl she does have enough supply of albuterol at [facility] Physical Exam Narrative: S1, S2 Clinically better Erythema of neck improved Awake and alert Nonfocal neuro exam No active chest pain or shortness of breath Doing well on room air wheezing has improved Discharge Data Studies Completed and Pending Completed Studies During Hospitalization Category Date Time Status XR chest 1V portable 92463 Stat Exams 03/30/22 13:49 Completed US soft tissue head neck 83040 Routine Ultrasound 03/30/22 19:17 Completed Radiology Impressions Chest X-Ray 03/30/22 13:49 IMPRESSION: 1. No acute cardiopulmonary finding. Head/Neck Ultrasound 03/30/22 19:17 IMPRESSION: Dense area soft tissue thickening corresponds to the LEFT neck mass. Not an abscess at this time. Probably an inflammatory process from the recent spider bite. If this area does not improve over time consider follow-up imaging. CT with contrast may provide additional information if necessary. Laboratory Results WBC 6.2 10^3/uL (4.0-10.0) 03/31/22 04:21 RBC 4.60 10^6/uL (4.1-5.3) 03/31/22 04:21 Hgb 13.0 g/dL (11.5-15.3) 03/31/22 04:21 Hct 39.9 % (37.0-47.0) 03/31/22 04:21 MCV 86.7 fl (81-99) 03/31/22 04:21 MCH 28.3 pg (28.0-34.0) 03/31/22 04:21 MCHC 32.6 g/dL (30.0-36.0) 03/31/22 04:21 RDW 13.2 % (12.1-15.1) 03/31/22 04:21 Plt Count 204 10^3/cmm (130-400) 03/31/22 04:21 MPV 9.8 fL (7.4-10.4) 03/31/22 04:21 Neut % (Auto) 78.2 % 03/31/22 04:21 Lymph % (Auto) 15.1 % 03/31/22 04:21 [place] % (Auto) 2.3 % 03/31/22 04:21 Eos % (Auto) 2.9 % 03/31/22 04:21 Baso % (Auto) 0.5 % 03/31/22 04:21 Neut # (Auto) 4.87 10^3/uL (1.8-7.7) 03/31/22 04:21 Lymph # (Auto) 0.9 10^3/uL (0.8-4.8) 03/31/22 04:21 [place] # (Auto) 0.1 10^3/uL (0.2-0.9) L 03/31/22 04:21 Eos # (Auto) 0.2 10^3/uL (0.0-0.8) 03/31/22 04:21 Baso # (Auto) 0.0 10^3/uL (0.0-0.1) 03/31/22 04:21 Nucleated RBC % (auto) 0 % 03/31/22 04:21 Nucleated RBCs # 0.0 /100WBC 03/31/22 04:21 D-Dimer 0.93 ug/mIFEU (0-0.59) H 03/30/22 14:47 Sodium 133 mmol/L (136-145) L 03/31/22 04:21 Potassium 3.8 mmol/L (3.5-5.1) 03/31/22 04:21 Chloride 95 mmol/L (98-107) L 03/31/22 04:21 Carbon Dioxide 28 mmol/L (22-29) 03/31/22 04:21 Anion Gap 13.8 (5-19) 03/31/22 04:21 BUN 22 mg/dL (8-23) 03/31/22 04:21 Creatinine 0.9 mg/dL (0.5-0.9) 03/31/22 04:21 GFR Calculation 62.6 mL/min (90-130) L 03/31/22 04:21 Glucose 137 mg/dL (65-115) H 03/31/22 04:21 Calculated Osmolality 281 mOsm/kg (285-295) L 03/31/22 04:21 Calcium 9.9 mg/dL (8.5-10.5) 03/31/22 04:21 Phosphorus 3.3 mg/dL (2.5-4.5) 03/31/22 04:21 Total Bilirubin 0.7 mg/dL (0.15-1.2) 03/30/22 14:47 AST 21 U/L (0-32) 03/30/22 14:47 ALT 16 U/L (0-33) 03/30/22 14:47 Alkaline Phosphatase 226 U/L (35-105) H 03/30/22 14:47 Troponin T Baseline 10 ng/L (0-10) 03/30/22 14:47 Troponin T 120 Minute 9.47 ng/L (0-10) 03/30/22 16:27 Delta Troponin T -0.53 ABS# (0-10) L 03/30/22 16:27 Troponin T Hi Sens 6Hr 9.73 ng/L (0-10) 03/30/22 20:55 Troponin T Hi Sens 6Hr Delta -0.27 ng/L (0-12) L 03/30/22 20:55 C-Reactive Protein 32.4 mg/L (0.0-4.9) H 03/31/22 04:21 NT-Pro-B Natriuret Pep 739 pg/mL (0-125) H 03/30/22 14:47 Total Protein 8.0 g/dL (6.6-8.7) 03/30/22 14:47 Albumin 4.5 g/dL (3.5-5.2) 03/30/22 14:47 Globulin 3.5 g/dL (1.3-4.6) 03/30/22 14:47 Procalcitonin 0.10 ng/mL (0-0.5) 03/30/22 16:27 Coronavirus 229E (PCR) Not detected (NOT DETECT) 03/30/22 14:50 SARS-CoV-2 (PCR) Not detected (NOT DETECT) 03/30/22 14:50 Vitals Last Vital Signs Temp 98.6 F 03/31/22 08:18 Pulse 74 03/31/22 08:18 Resp 14 03/31/22 08:18 BP 154/78 03/31/22 08:18 Pulse Ox 98 03/31/22 08:18 O2 Del Method 03/31/22 08:18 Discharge Plan Discharge Patient Disposition: Home Condition: Stable Prescriptions: New methylprednisolone [Medrol (David)] 4 mg tablets,dose pack See Rx Instructions .ROUTE .COMPLEX Qty: 21 0RF Rx Instructions: orally per package directions diphenhydramine HCl [Benadryl Allergy] 25 mg tablet 25 mg PO Q8H PRN (Reason: allergic reaction) Qty: 5 0RF Continued metoprolol tartrate 25 mg tablet 25 mg PO BID potassium chloride 10 mEq capsule, extended release 10 meq PO DAILY omeprazole 20 mg capsule,delayed release(DR/EC) 20 mg PO DAILY montelukast 10 mg tablet 10 mg PO DAILY Bumex 2 mg Tablet 2 mg PO DAILY Ventolin HFA 90 mcg/actuation HFA aerosol inhaler 2 puff INHALATION Q6H PRN (Reason: Shortness Of Breath) Myrbetriq 25 mg Tablet Extended Release 24 Hr 25 mg PO DAILY Discharge Orders: Discharge Order (Routine); Ordered 03/31/22 Ordered By: Rolando Recinos Referrals: Karen Jeffrey DO [Primary Care Provider] - 2 weeks Patient Instructions: Opioid Safety Discharge Attestations Time Spent in Discharge Care*: less than 30 min Quality Metrics Clinical Quality Measures [ No reported AMI, CVA or VTE this stay] Coding Level of Care Code Acute Chg FW DC note Diagnoses Shortness of breath R06.02 Orthopnea R06.01 Spider bite T63.301A Cellulitis L03.90 Asthma exacerbation, mild J45.901
--- NOTE | 2022-03-31 12:44 | PC.NURSE ---
Patient given follow up appointments and instructions. Patient and verbalized understanding and were told prescriptions were sent to [facility]. Pt ambulated to surgical services door with nurse and .
== END 2022-03-31 12:31 | disposition home or self-care (01) ==
LOC: ER 17:44 → CSU 18:18
PROVIDERS: Admitting Provider Internal Medicine; Emergency Provider Emergency Medicine; PCP Family Medicine; Visit Provider Internal Medicine
DX: R06.02 Shortness of breath (principal); R06.01 Orthopnea; T63.301A Toxic effect of unspecified spider venom, accidental (unintentional), initial encounter; L03.90 Cellulitis, unspecified; J45.901 Unspecified asthma with (acute) exacerbation; I10 Essential (primary) hypertension
CPT/HCPCS: 36415; 71045; 76536; 80048; 80053; 83880; 84100; 84145; 84484; 85025; 85378; 86140; 87635; 93005; 94640; 96374; G0378; J0696; J1200; J2920

== ENCOUNTER → 2022-11-30 14:28 | Outpatient (BNVA) | payer MEDICARE, MEDICAID, SELFPAY | PROVIDERS: PCP Family Medicine; Visit Provider Student in an Organized Health Care Education/Training Program | DX: M17.12 Unilateral primary osteoarthritis, left knee (principal) | CPT/HCPCS: 73560; 73565; 99203 ==

== ENCOUNTER 2022-12-09 14:57 | Outpatient (CLI) | payer MEDICARE, MEDICAID, SELFPAY | END 2022-12-09 14:58 | disposition home or self-care (01) | LOC: SPT 14:58 | PROVIDERS: PCP Family Medicine; Visit Provider Student in an Organized Health Care Education/Training Program | DX: Z46.89 Encounter for fitting and adjustment of other specified devices (principal); M17.12 Unilateral primary osteoarthritis, left knee | CPT/HCPCS: 97760; L1851 ==

== ENCOUNTER → 2023-02-26 08:39 | Outpatient (BNVA) | payer MEDICARE, MEDICAID, SELFPAY | PROVIDERS: PCP Family Medicine; Visit Provider Student in an Organized Health Care Education/Training Program | DX: M17.12 Unilateral primary osteoarthritis, left knee (principal) | CPT/HCPCS: 99213 ==

== ENCOUNTER 2023-11-16 12:40 | Outpatient (CLI) | payer MEDICARE, MEDICAID, SELFPAY ==
--- NOTE | 2023-11-16 12:50 | XR_ITS ---
WS: [id number] SCREENING DEXA SCAN [employer] CLINICAL INFORMATION: OSTEOPENIA OF SPINE COMPARISON: None. FINDINGS: The L1-L4 bone mineral density measures 1.267 g/cm2. This corresponds to a T score score of 0.7 and Z score of 1.2. Left femoral neck bone mineral density measures 1.060 g/cm2. This corresponds to a T score of 0.4 and Z score of 0.9. Right femoral neck bone mineral density measures 0.998 g/cm2. This corresponds to a T score -0.1of an d Z score of 0.4. Mean femoral neck bone mineral density measures 1.029 g/cm2. This corresponds to a T score of 0.2 and Z score of 0.7. XR/XR DEXA axial skeleton* [id number] IMPRESSION: Normal bone mineralization. Patient's FRAX calculated 10 year probability for major osteoporotic fracture i s 7.5% and osteoporotic hip fracture is 0.7%.
== END 2023-11-16 12:41 | disposition home or self-care (01) ==
LOC: RAD 12:40
PROVIDERS: PCP Family Medicine; Visit Provider Family Medicine
DX: Z13.820 Encounter for screening for osteoporosis (principal); M85.88 Other specified disorders of bone density and structure, other site
CPT/HCPCS: 77080